=== PATIENT | male | born 1975 | race African-American/Black ===

== ENCOUNTER → 2020-08-08 | Day surgery (SDC) | payer OTHER ==
[~2020-08-08] MED LIST: NOHOMEMEDICATIONS PO; NORCO5 PO
--- NOTE | ~2020-08-08 | OP ---
[facility] [address] [place] [address] OPERATIVE REPORT Name: JAY CORDOBA Room: [facility]#: [id number] Admission: 08/08/20 Attend Phys: Jeremías Doyle Discharge: Date of : 79 Report #: [id number] THIS REPORT FOR: cc: Dimitrios Giraldo James A. DO Patterson, Jonathan D. MD ~ DOC #: [id number] Jeremías Doyle MD DATE OF SURGERY: 08/08/2020 PREOPERATIVE DIAGNOSIS: Recurrent right inguinal hernia. POSTOPERATIVE DIAGNOSIS: Recurrent right inguinal hernia. OPERATION: Laparoscopic repair of recurrent right inguinal hernia with mesh. SURGEON: Jeremías Doyle MD. ANESTHESIA: General. ESTIMATED BLOOD LOSS: Minimal. SPECIMENS: None. DESCRIPTION OF PROCEDURE: After informed consent was obtained, the patient was brought to the operating room and placed supine. SCDs were placed and working, preoperative antibiotics were administered, general anesthesia was induced. The abdomen was prepped and draped in the usual sterile fashion. A 10 mm incision was made below the umbilicus. Fascia was incised and a trocar was placed. Pneumoperitoneum was established. Left and right lower quadrant 5 mm trocars were placed under direct vision. The peritoneum at the right ASIS was scored. Peritoneum was then incised and reflected inferiorly. The cord structures were identified. The pubic bone was identified. Recurrent direct hernia was reduced. A large Bard 3DMax midway mesh was inserted. It was brought into the surgical area. It was then put into the pocket in the right groin. No tacks were used. I reapproximated the peritoneum with a running 2-0 V-Loc suture. During this closing of the peritoneum, I incorporated bites of the mesh to help keep it in place. This held the mesh in place. The mesh was 100% covered. The ports were then removed under direct vision. The fascia at the umbilicus was closed with a [id number] 0 Vicryl. Skin was closed with 4-0 Monocryl. Incisions were sealed with Steri-Strips. COMPLICATIONS: None. DISPOSITION: The patient was taken [place] [address] OPERATIVE REPORT Name: JAY CORDOBA Room: [facility]#: [id number] Admission: 08/08/20 Attend Phys: Jeremías Doyle Discharge: Date of : 79 Report #: [id number] MD ELAINE Goldman/[facility] [place]: [id number] Doyle MD /nt
[2020-08-08 09:26] LABS: HEMOGLOBIN 14.3 gm/dL (14.0-18.0); MCH 31.1 pg (26.0-34.0); MCV 91.5 fL (80.0-100.0); MPV 7.9 fl. (7.2-11.1); RBC 4.59 mil/uL (4.50-6.00); RDW-CV 13.8 % (10.5-14.5); WBC 3.1 thou/uL (4.0-11.0)
[2020-08-08 09:33] LABS: CALCIUM 8.8 mg/dL (8.5-10.1); CREATININE 1.2 mg/dL (0.6-1.3); POTASSIUM 3.6 mmol/L (3.5-5.1)
== END | disposition home or self-care (01) ==
LOC: M.LAB 05:53 → M.SUR 08:40 → M.LAB 08:40
PROVIDERS: ATTEND Surgery
DX: K40.91 Unilateral inguinal hernia, without obstruction or gangrene, recurrent (principal); R10.9 Unspecified abdominal pain; Z98.890 Other specified postprocedural states; Z79.899 Other long term (current) drug therapy